=== PATIENT | male | born 1990 | race Caucasian/White ===

== ENCOUNTER 2018-03-09 15:51 | Emergency (ER) | payer OTHER ==
[~2018-03-09] VITALS: Ht 188 cm; Wt 47.9 kg
[2018-03-09 16:00] VITALS: BP 133/86
[2018-03-09] MEDS ORDERED: LIDOCAINE-MPF 1%, 5ML ONE (16:24)
[2018-03-09] MEDS ORDERED: LIDOCAINE-MPF 1%, 5ML INFIL ONE (16:30)
== END 2018-03-09 17:12 | disposition home or self-care (01) ==
LOC: ED 17:05
DX: S01.511A Laceration without foreign body of lip, initial encounter (principal); W22.8XXA Striking against or struck by other objects, initial encounter; Y93.89 Activity, other specified; Y92.69 Other specified industrial and construction area as the place of occurrence of the external cause; Y99.8 Other external cause status
CPT/HCPCS: 40650; 99284

== ENCOUNTER 2018-03-15 12:42 | Emergency (ER) | payer OTHER ==
[~2018-03-15] VITALS: Ht 188 cm; Wt 79.4 kg
[2018-03-15 13:04] VITALS: BP 110/65
[2018-03-15] MEDS ORDERED: BACITRACIN ZINC OINT 500U/GM, 0.9 GM ONE (13:46)
== END 2018-03-15 13:46 | disposition home or self-care (01) ==
LOC: ED 13:15
DX: S01.511D Laceration without foreign body of lip, subsequent encounter (principal); X58.XXXD Exposure to other specified factors, subsequent encounter
CPT/HCPCS: 99281

== ENCOUNTER 2021-01-18 13:00 | Day surgery (SDC) | payer OTHER ==
[~2021-01-18] VITALS: Ht 188 cm; Wt 70.5 kg
[2021-01-18 13:56] VITALS: BP 120/77
[2021-01-18] MEDS ORDERED: CHLORHEXIDINE 15 ML UDC ONE (14:10)
[2021-01-18] MEDS ORDERED: BUPIVACAINE/PF 0.5% ONE (14:22)
[2021-01-18] MEDS ORDERED: LACTATED RINGERS 1,000 ML IV SCH (14:30)
[2021-01-18] MEDS ORDERED: CHLORHEXIDINE 15 ML UDC PO ONE (14:30)
[2021-01-18] MEDS ORDERED: FENTANYL PF 250 MCG/5ML ONE (14:36)
[2021-01-18] MEDS ORDERED: MIDAZOLAM 1 MG/ML, 2ML ONE (14:36)
[2021-01-18] MEDS ORDERED: NEOSTIGMINE 1 MG/ML, 10ML ONE (14:59)
[2021-01-18] MEDS ORDERED: ROCURONIUM 10MG/ML,5ML ONE (14:59)
[2021-01-18] MEDS ORDERED: PROPOFOL 10 MG/ML, 20ML ONE (14:59)
[2021-01-18] MEDS ORDERED: CEFAZOLIN 1,000 MG ONE (14:59)
[2021-01-18] MEDS ORDERED: GLYCOPYRROLATE 0.2MG/1ML, 5ML ONE (14:59)
[2021-01-18] MEDS ORDERED: HYDROmorphone 1 MG/ML, 1ML INJ IVPush PRN (15:00)
[2021-01-18] MEDS ORDERED: morphine SULFATE 10 MG/ML, 1ML IVPush PRN (15:00)
[2021-01-18] MEDS ORDERED: FENTANYL PF 100 MCG/2ML IV PRN (15:00)
[2021-01-18] MEDS ORDERED: ACETAMINOPHEN 325 MG TABLET PO PRN (15:00)
[2021-01-18] MEDS ORDERED: LABETALOL 5MG/ML, 20ML IV PRN (15:00)
[2021-01-18] MEDS ORDERED: hydrALAzine 20 MG/ML, 1ML IV PRN (15:00)
[2021-01-18] MEDS ORDERED: ONDANSETRON 2MG/ML, 2ML IVPush PRN (15:00)
[2021-01-18] MEDS ORDERED: OXYcodone 5 MG/5 ML ORAL.SOL UDC PO PRN (15:00)
[2021-01-18] MEDS ORDERED: MEPERIDINE/PF 25MG/0.5ML IVPush PRN (15:00)
[2021-01-18] MEDS ORDERED: CEFOTETAN 2 GM ONE (15:01)
[2021-01-18] MEDS ORDERED: OXYC1TAB12 PO ×2 (15:20→15:29)
[2021-01-18] MEDS ORDERED: AMOX1TAB64 PO (15:20)
== END 2021-01-18 16:55 | disposition home or self-care (01) ==
LOC: OUT 13:00
PROVIDERS: ATTEND Surgery
DX: K62.89 Other specified diseases of anus and rectum (principal); K60.3 Anal fistula; Z20.822 Contact with and (suspected) exposure to COVID-19; Z87.891 Personal history of nicotine dependence; Z88.1 Allergy status to other antibiotic agents; Z72.89 Other problems related to lifestyle
CPT/HCPCS: 46275; 87635; C1729; J2250; J2704; J2710; J3010; J7120; J0690